=== PATIENT | female | born 1985 | race Caucasian/White ===

== ENCOUNTER → 2017-08-18 23:00 | Outpatient (CLI) | payer OTHER, SELFPAY ==
[2017-08-26 11:44] LABS: HPV Reflexed? NOT INDICATED
== END ==
PROVIDERS: Visit Provider Obstetrics & Gynecology
DX: Z12.4 Encounter for screening for malignant neoplasm of cervix (principal)
CPT/HCPCS: 88175; G0145

== ENCOUNTER → 2018-10-22 13:40 | Outpatient (CLI) | payer OTHER, SELFPAY ==
[2018-09-21 08:56] VITALS: BMI 21.4
--- NOTE | 2018-10-22 13:45 | US_ITS ---
STUDY: ULTRASOUND TRANSVAGINAL CLINICAL: Female, 33 years old. Infertility TECHNIQUE: Transvaginal COMPARISON: None. FINDINGS: Normal uterine size measuring 8.9 x 5.7 x 4.8 cm. Uterus is anteverted and is midline. There are no myometrial masses. Normal endometrial thickness measuring 10 mm. The endometrium is echogenic. There are no endometrial masses, and there is no fluid in the endometrial cavity. Normal uterine cervix. Normal right ovary, measuring 3.9 x 2.7 x 2.9 cm. Normal left ovary, measuring 3.6 x 2.2 x 2.2 cm. There is no free fluid in the pelvis. Polycystic ovary disease: No. US/Pelvic (Non ) IMPRESSION: Study within normal limits. Electronically Signed: Mynor Tang MD at 23:46 EDT , Service support ,
--- NOTE | 2018-10-22 13:45 | US_ITS ---
STUDY: ULTRASOUND TRANSVAGINAL CLINICAL: Female, 33 years old. Infertility TECHNIQUE: Transvaginal COMPARISON: None. FINDINGS: Normal uterine size measuring 8.9 x 5.7 x 4.8 cm. Uterus is anteverted and is midline. There are no myometrial masses. Normal endometrial thickness measuring 10 mm. The endometrium is echogenic. There are no endometrial masses, and there is no fluid in the endometrial cavity. Normal uterine cervix. Normal right ovary, measuring 3.9 x 2.7 x 2.9 cm. Normal left ovary, measuring 3.6 x 2.2 x 2.2 cm. There is no free fluid in the pelvis. Polycystic ovary disease: No. US/Transvaginal Non- IMPRESSION: Study within normal limits. Electronically Signed: Mynor Tang MD at 23:46 EDT , Service support ,
== END ==
PROVIDERS: Referring Provider Obstetrics & Gynecology; Visit Provider Obstetrics & Gynecology
DX: F32.81 Premenstrual dysphoric disorder (principal); M62.89 Other specified disorders of muscle; N39.46 Mixed incontinence; N97.9 Female infertility, unspecified
CPT/HCPCS: 76830; 76856; 93976

== ENCOUNTER → 2019-06-13 09:58 | Outpatient (CLI) | payer OTHER, SELFPAY ==
[2019-06-13 09:00] VITALS: BMI 24.3
[2019-06-13 10:24] LABS: Absolute Lymphocyte Count 1.24 X10^3/uL (0.83-4.51); Absolute Neutrophil Count 5.7 X10^3/uL (2.0-7.7); Basophil# 0.01 X10^3/uL; Basophil% 0.1 % (0-1); Eosinophil# 0.07 X10^3/uL; Eosinophils% 0.9 % (0-5); Hematocrit 38.8 % (37-47); Hemoglobin 13.1 g/dL (12.0-15.0); Lymphocyte # 1.24 X10^3/ul (4.0); Lymphocyte % 16.6 % (19-41); Mean Corp Hgb Conc 33.8 g/dL (32-36); Mean Corpuscular Hgb 31.6 pg (27.0-32.0); Mean Corpuscular Volume 93.7 fL (81-99); Mean Platelet Vol. 10.4 fl (6.2-12.0); Monocyte# 0.46 X10^3/uL; Monocyte% 6.1 % (0-10); NRBC Flagged by Analyzer 0 % (0-5); Neutrophil # 5.65 X10^3/uL (2.7-7.7); Neutrophil % 75.6 % (47-70); Platelet Count 157 K/mm3 (150-450); RBC Distribution Width CV 12.6 % (11.6-14.6); RBC Distribution Width SD 42.9 fl (35.1-43.9); Red Blood Count 4.14 M/mm3 (4.2-5.4); White Blood Count 7.5 K/mm3 (4.4-11.0)
[2019-06-13 12:06] LABS: HIV - WCH Non-Reactive (Nonreactive); Hepatitis B Surface Antigen Non-Reactive (Nonreactive); Hepatitis C Antibody Non-Reactive (Nonreactive); Rubella IgG 108.2 IU/mL
[2019-06-13 17:56] LABS: Amphetamine Urine VISTA NEGATIVE (<1000 ng/mL); Barbiturate Urine VISTA NEGATIVE (< 200 ng/mL); Benzodiazepine Urine VISTA NEGATIVE (< 200 ng/mL); Cocaine Urine VISTA NEGATIVE (< 300 ng/mL); Ecstacy Urine VISTA NEGATIVE (< 500 ng/mL); Methadone Urine VISTA NEGATIVE (< 300 ng/mL); PCP Urine VISTA NEGATIVE (< 25 ng/mL); THC Urine VISTA NEGATIVE (< 50 ng/mL); Vista UDS pH Range 6
[2019-06-13 19:41] LABS: Chlamydia Trachomatis by PCR Negative (Negative); Neisserai gonorrhoeae by PCR Negative (Negative); Probe Check PASS; Sample Adequacy Control PASS; Specimen Processing Control PASS
[2019-06-16 08:06] LABS: Rapid Plasmin Reagin (RPR) NONREACTIVE (NONREACTIVE)
== END ==
PROVIDERS: Referring Provider Obstetrics & Gynecology; Visit Provider Obstetrics & Gynecology
DX: O26.899 Other specified pregnancy related conditions, unspecified trimester (principal); Z67.91 Unspecified blood type, Rh negative; Z3A.00 Weeks of gestation of pregnancy not specified
CPT/HCPCS: 80307; 85025; 86592; 86703; 86762; 86803; 86850; 86900; 86901; 87086; 87088; 87340; 87491; 87591

== ENCOUNTER 2019-10-02 12:00 | Outpatient (CLI) | payer OTHER, SELFPAY ==
[2019-09-09 08:38] VITALS: BMI 21.4
[2019-10-02 12:15] VITALS: BP 111/63; PULSE 75; TEMP 36.7; O2SAT 98
[2019-10-02 12:26] VITALS: BMI 26.2
--- NOTE | 2019-10-03 12:48 | OB.TRI.PN ---
Progress Notes Date of Service: 10/02/19 Progress Note: s/p fall given rhogam fu in office reassuring FHT Laboratory Studies: Laboratory Tests 10/02/19 10/02/19 Range/Units 13:05 13:05 Blood Type A NEGATIVE Antibody Screen NEGATIVE Screen NEGATIVE (NEGATIVE) Baby's Blood Type TNP Baby's CHIP TNP - Problem List (1) Rh negative state in antepartum period Status: Acute Comment: s/p fall 10/01 given rhogam, plan to give again 12 weeks later Multi Select Codes - Urinary/Genital Urinary/Genital CPT Codes: No Charge
== END 2019-10-02 15:00 | disposition home or self-care (01) ==
LOC: WPOUT 12:08 → OBT 12:09
PROVIDERS: Visit Provider Obstetrics & Gynecology
DX: Z04.3 Encounter for examination and observation following other accident (principal); O26.899 Other specified pregnancy related conditions, unspecified trimester; Z67.91 Unspecified blood type, Rh negative; Z3A.00 Weeks of gestation of pregnancy not specified
CPT/HCPCS: 36415; 59050; 85461; 86850; 86900; 86901; 90384; 96372; 99218; G0378; J2790

== ENCOUNTER → 2019-10-21 12:58 | Outpatient (CLI) | payer OTHER, SELFPAY ==
[2019-10-07 08:12] VITALS: BMI 26.6
[2019-10-21 14:16] LABS: Absolute Lymphocyte Count 0.89 X10^3/uL (0.83-4.51); Absolute Neutrophil Count 5.7 X10^3/uL (2.0-7.7); Eosinophil# 0.05 X10^3/uL; Eosinophils% 0.7 % (0-5); Hematocrit 35.2 % (37-47); Hemoglobin 11.5 g/dL (12.0-15.0); Lymphocyte # 0.89 X10^3/ul (4.0); Lymphocyte % 12.7 % (19-41); Mean Corp Hgb Conc 32.7 g/dL (32-36); Mean Corpuscular Hgb 31.1 pg (27.0-32.0); Mean Corpuscular Volume 95.1 fL (81-99); Mean Platelet Vol. 10.9 fl (6.2-12.0); Monocyte# 0.33 X10^3/uL; Monocyte% 4.7 % (0-10); NRBC Flagged by Analyzer 0 % (0-5); Neutrophil # 5.71 X10^3/uL (2.7-7.7); Neutrophil % 81.3 % (47-70); Platelet Count 190 K/mm3 (150-450); RBC Distribution Width CV 13.2 % (11.6-14.6); RBC Distribution Width SD 45.8 fl (35.1-43.9)
[2019-10-21 14:27] LABS: Glucose Challenge Gest 1H 50g 129 mg/dL (70-140)
== END ==
PROVIDERS: Obstetrics & Gynecology; Referring Provider Obstetrics & Gynecology; Visit Provider Obstetrics & Gynecology
DX: Z34.90 Encounter for supervision of normal pregnancy, unspecified, unspecified trimester (principal); Z13.1 Encounter for screening for diabetes mellitus
CPT/HCPCS: 36415; 82950; 85025; 86850; 86870; 86900; 86901

== ENCOUNTER → 2019-12-07 16:52 | Outpatient (CLI) | payer OTHER, SELFPAY ==
[2019-12-07 16:12] VITALS: BMI 28.6
== END ==
PROVIDERS: Referring Provider Obstetrics & Gynecology; Visit Provider Obstetrics & Gynecology
DX: O26.899 Other specified pregnancy related conditions, unspecified trimester (principal); Z67.91 Unspecified blood type, Rh negative; Z3A.00 Weeks of gestation of pregnancy not specified
CPT/HCPCS: 36415; 86850; 86900; 86901

== ENCOUNTER → 2019-12-20 17:38 | Outpatient (CLI) | payer OTHER, SELFPAY ==
[2019-12-07 16:12] VITALS: BMI 28.6
== END ==
PROVIDERS: Referring Provider Obstetrics & Gynecology; Visit Provider Obstetrics & Gynecology
DX: Z34.90 Encounter for supervision of normal pregnancy, unspecified, unspecified trimester (principal)
CPT/HCPCS: 87081; 87635; C9803; U0003

== ENCOUNTER → 2019-12-27 15:45 | Outpatient (CLI) | payer OTHER, SELFPAY ==
[2019-12-27 15:45] VITALS: BMI 26.2
== END ==
PROVIDERS: Referring Provider Obstetrics & Gynecology; Visit Provider Obstetrics & Gynecology
DX: O26.899 Other specified pregnancy related conditions, unspecified trimester (principal); Z3A.00 Weeks of gestation of pregnancy not specified
CPT/HCPCS: 36415; 86850; 86900; 86901

== ENCOUNTER 2020-01-12 19:28 | Inpatient (IN) | payer OTHER, SELFPAY ==
[2019-12-27 15:45] VITALS: BMI 29.1
[2020-01-12] VITALS (11 sets, daily range): BP systolic 117–139; BP diastolic 68–79; PULSE 70–90; TEMP 36.4–37.7; O2SAT 97–99; BMI 30.2; BMI 29.9
[2020-01-12 18:37] LABS: Protein, Urine (Random) 9.4 mg/dL (<11.9); Protein:Creat Ratio 243 mg/g CRE (0-200)
[2020-01-12 18:46] LABS: Hematocrit 37.7 % (37-47); Hemoglobin 12.2 g/dL (12.0-15.0); Mean Corp Hgb Conc 32.4 g/dL (32-36); Mean Corpuscular Hgb 30.4 pg (27.0-32.0); Mean Platelet Vol. 11.6 fl (6.2-12.0); Platelet Count 165 K/mm3 (150-450); RBC Distribution Width CV 13.2 % (11.6-14.6); RBC Distribution Width SD 45.2 fl (35.1-43.9); Red Blood Count 4.01 M/mm3 (4.2-5.4)
[2020-01-12 18:49] LABS: AST(SGOT) 29 U/L (15-37); Alanine Aminotransfer ALT/SGPT 16 U/L (13-56); EST Glomerular Filtration Rate 122 mL/min (>60); Est Glom Filt Rate - Afr Amer 147 mL/min (>60); Estimated Creatinine Clearance 121.13 ml/min; Uric Acid 3.9 mg/dL (2.6-6.0)
[2020-01-12 18:56] LABS: Scan Indicated on CBC? Y/N NO
[2020-01-12] MEDS: 0.9% Saline Lock 10 ML Syringe IV (19:17)
--- NOTE | 2020-01-12 20:05 | PCM.HPOB.BLA ---
- Problem List (1) Active labor at term Status: Acute (2) Exposure to COVID-19 virus Status: Acute Comment: positive 12/19- patient tested, reviewed contact precautions. ordered testing (3) H/O section Status: Acute Comment: Breech, had successful , plan TOLAC this delivery (4) Status: Acute Qualifiers: Comment: declines genetic, carrier and NTD. anatomy scan normal (5) Rh negative state in antepartum period Status: Acute Comment: s/p fall 10/01 given rhogam, plan to give again 12 weeks later (6) Supervision of other normal Status: Acute Comment: PRR RICKY 01/17/20 Boy - Mohamud, PC:Indra Jonnathan Spouse: Warner (7) Anxiety and depression Status: Chronic Comment: on zoloft now. counseling encouraged. prozac helped in past. 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 Vicenta Gomez MD) adopted: No household members: family housing: house number of children: 2 current occupational status: employed current occupation: [employer] [place] pets and animals: Yes history of recent travel: No sexually active: Yes Smoking Status: Former smoker second hand exposure: No alcohol intake: current alcohol intake frequency: holidays/special occasions only details: not while substance use type: does not use caffeine: Yes what type of physical activity do you participate in: walking seatbelt use: always do you feel safe at home: Yes additional social history: Warner- [employer] Work[employer] Patient works at [employer] Pregancy History 2 Elective abortions Hx Para 2 Spontaneous abortions Hx # Term Pregnancies Ectopic pregnancies Hx # Pregnancies Multiple births # of living children Past Pregnancies Del. Date Name GA/Weeks Outcome Route Bth Weight Infant Gen Labor Lgth Anesthesia Del Locatn Provider FOB Unknown 2012 Indra 39 live - full term 7lbs 2oz Male spinal [place] in [place] Unknown 2016 Jonnathan 39 live - full term 6lbs 14oz Male 9 hours none Kimberli Araiza Delivery Date: Breech Naila Boland Delivery Date: No complications Naila Boland HPI 39 WK OB: Details: MARVIN CACERES is a 34 year old who presents for routine OB visit. OB Visit RICKY Calculator Estimated Delivery Date Method Current WG Current Estimate 01/17/20 LMP (Certain) 39w 2d Other Estimates 01/16/20 Ultrasound #1 39w 3d Expected Delivery Route/Plan patient counseled regarding risks/benefits of trial of labor versus repeat . ACOG and uptodate education given to patient. 95 % likelihood of success per calculator TOLAC consent form signed: 11/24 Labor Preferences- labor support person: Warner pain management options preferred: Desires natural labor cut cord/dad catch: cord : yes PP control planned: [] discussed possible routes of delivery and associated risks: [] special requests: [] Specific Issue/Plans flu vaccine: at employer tdap vaccine: yes rhogam: 10/01 LARC form signed: declined. movement and labor precautions reviewed. Problem list reviewed and updated with the most current plan of care details and appropriate orders placed. Relevant counseling for the gestational age provided. Continue routine care and follow up unless otherwise noted in visit notes/problem list details Initial Weight: 146 lb Date EGA Weight BP Urine Prot Glucose FHR FuHt Pres Dilation Effaced St Visit Note 06/01/20 12w 6d 149 lb 2 oz (+3 lb 2 oz) 118/68 Negative Negative 163 MH-Nausea resolved. NO VB, LOF. MFM US ordered 08/08/19 16w 6d 151 lb 8 oz (+5 lb 8 oz) 108/70 Negative Negative 145 17 SM- no vb lof 09/09/19 21w 3d 156 lb 2 oz (+10 lb 2 oz) 108/60 Negative Negative 140 21 SM- no vb lof good fm no regular ctx 10/07/19 25w 3d 160 lb (+14 lb) 100/80 Negative Negative 145 25 GP - no LOF, VB, DFM. Not kulwinder. Still sore after fall last weekend. 10/26/19 28w 1d 165 lb 6 oz (+19 lb 6 oz) 100/62 Negative Negative 142 29 MH-doing VB, LOF. Will get flu vaccine at work. Rhogam given 10/01:rpt in 12 weeks. Tdap, larc 11/11/19 30w 3d 164 lb 2 oz (+18 lb 2 oz) 102/56 Negative Negative 145 31 SM- no vb lof good fm no regular ctx 11/25/19 32w 3d 168 lb (+22 lb) 106/80 Negative Negative 140 33 SM- no vb lof good fm nor egular ctx signed tolac consent 12/07/19 34w 1d 172 lb 6 oz (+26 lb 6 oz) 120/80 Negative Negative 145 34 Cephalic GP - no VB, DFM, ctx. Occasional trickling of fluid. Spec exam negative. Position confirmed as vertex. Repeat antibody titers today. 12/20/19 36w 0d 122/80 140 36 Cephalic 0 SM- patient asymptomatic- loss sense of taste and smell but it otherwise doing well even though covid positive today. she denies any vb lof good fm no regular ctx 12/27/19 37w 0d 175 lb (+29 lb) 108/70 140 38 Cephalic SM- no vb lof good fm no regular ctx. 01/02/20 37w 6d 175 lb (+29 lb) 118/78 140 39 Cephalic 1 SM- fatigue and not feeling good today, no vb lof good fm no regular ctx. 01/12/20 39w 2d 181 lb 6 oz (+35 lb 6 oz) 150/102 Negative Negative 140 39 Cephalic 4 70 -1 GP - no LOF, VB, DFM. Feeling regular contractions off and on for the last 24 hours. BP elevated in office. Sent to triage for evaluation. ACOG First Trimester First Trimester: Discussed Second Trimester Second Trimester: Signs and Symptoms of Labor, Selecting a care provider, Reproductive Life Planning, Care Planning, Depression/Anxiety and Intimate Partner Violence; discussed Tobacco Cessation Diagnostics Diagnostics Diagnostics Blood Type A NEGATIVE 12/27/19 Antibody Screen NEGATIVE 12/27/19 Glucose 1 Hr 50 gm 129 mg/dL (70-140) 10/21/19 Hgb 11.5 g/dL (12.0-15.0) L 10/21/19 Hct 35.2 % (37-47) L 10/21/19 Details: HIV: Urine Culture: Sequential Screen: NIPT Screen: ROS Const Reports system reviewed and no additional complaints, except as docu, Reports fatigue, Denies headache(s) ENT Reports system reviewed and no additional complaints, except as docu; denies headache(s) Card Reports system reviewed and no additional complaints, except as docu, Denies chest pain Resp Reports system reviewed and no additional complaints, except as docu GI Reports system reviewed and no additional complaints, except as docu Reports system reviewed and no additional complaints, except as docu, Denies abnormal vaginal bleeding, Denies painful urination, Denies nipple discharge, Denies pelvic pain, Denies vaginal discharge, Denies vaginal odor, Denies vaginal itching Musc Reports system reviewed and no additional complaints, except as docu Skin/Breast Reports system reviewed and no additional complaints, except as docu, Denies nipple discharge Neuro Yes system reviewed and no additional complaints, except as docu, No headache(s) Psych Reports system reviewed and no additional complaints, except as docu Endo Reports system reviewed and no additional complaints, except as docu, Reports fatigue Exam Const General: cooperative, healthy appearing, comfortable, no acute distress, well developed, well groomed Nutritional Appearance: average body habitus, well nourished Orientation: alert, awake, oriented x3 HENMT Head: normal to inspection, normocephalic, atraumatic Eyes Pupils: PERRL, accommodation normal Resp Effort & Inspection: normal respiratory effort, able to speak in complete sentences, symmetric chest movement Cardio Rate: regular rate GI Palpation: soft, no guarding, no masses, nontender Skin General: no rashes or lesions noted, elasticity normal, turgor normal Neuro General: alert, awake, oriented x3 Cranial Nerves: CN's II-XI intact bilaterally, sense of smell intact, PERRL, accommodation normal, EOM intact bilaterally Speech: speech normal Gait: normal gait Psych Appearance: grossly normal, well kempt Mental Status: mental status grossly normal Mood: congruent mood Affect: normal affect Speech and Movement: speech and movement normal Attitude: cooperative Thought Process: normal Thought Content: normal Judgment: judgment good Results POC Urinalysis 2 Dip (Clinic) Office Urine Glucose Negative Last Edit by Jud Bennett on 01/12/20 16:46 Office Urine Protein Negative Last Edit by Jud Bennett on 01/12/20 16:46 Assessment & Plan Problems 1. 37 weeks gestation of Z3A.37 electronic ordered 12/28/2019 ([facility] for 01/12/20 at 1630) 2. H/O section Z98.891 Breech, had successful , plan TOLAC this delivery 3. Exposure to COVID-19 virus Z20.828 positive 12/19- patient tested, reviewed contact precautions. ordered testing 4. Rh negative state in antepartum period O26.899; Z67.91 s/p fall 10/01 given rhogam, plan to give again 12 weeks later 5. Supervision of other normal Z34.80 PRR RICKY 01/17/20 Boy - Mohamud, PC:Jonnathan Burrell Spouse: Warner 6. 39 weeks gestation of Z3A.39 declines genetic, carrier and NTD. anatomy scan normal 7. Anxiety and depression F41.9; F32.9 on zoloft now. counseling encouraged. prozac helped in past. Patient presents IAL, plan expectant management for , pitocin/AROM PRN if needed. Pain management: desires natural labor. GBS negative. Management of any complications: none I have reviewed the [facility] and made any clinically relevant updates. UPDATE- I have seen the patient and performed any clinically relevant updates to the history and physical exam. Vicenta Gomez MD
[2020-01-13] VITALS (24 sets, daily range): BP systolic 101–128; BP diastolic 55–74; PULSE 75–107; RESP 12–14; TEMP 36.4–37.7; O2SAT 94–99
[2020-01-13] MEDS: 0.9% Saline Lock 10 ML Syringe IV (03:39)
[2020-01-13] MEDS: Oxytocin 30 units/NS 500 ml 30 UNITS/500 ML IV.SOLN 334 UNITS IV (08:08)
--- NOTE | 2020-01-13 08:23 | OP.PCM_ITS ---
Problem List (1) Vaginal after Status: Acute (2) Active labor at term Status: Acute (3) 37 weeks gestation of Status: Acute Comment: electronic ordered 12/28/2019 (formerly [facility] for 01/12/20 at 1630) (4) Exposure to COVID-19 virus Status: Acute Comment: positive 12/19- patient tested, reviewed contact precautions. ordered testing (5) H/O section Status: Acute Comment: Breech, had successful , plan TOLAC this delivery (6) Rh negative state in antepartum period Status: Acute Comment: s/p fall 10/01 given rhogam, plan to give again 12 weeks later (7) Supervision of other normal Status: Acute Comment: PRR RICKY 01/17/20 Boy - Mohamud, PC:Jonnathan Burrell Spouse: Warner (8) Status: Acute Qualifiers: Comment: declines genetic, carrier and NTD. anatomy scan normal (9) Anxiety and depression Status: Chronic Comment: on zoloft now. counseling encouraged. prozac helped in past. Vaginal Delivery Maternal Presentation: Active Labor ial TOLAC Amniotic Membrane Rupture Type: Artificial Amniotic Fluid Description: Clear Final RICKY: 01/17/20 Gestational age: 39 Weeks and 3 Days Date of Procedure: 01/13/20 Pre-Operative Diagnosis: ial Post-Operative Diagnosis: same Surgery/ Procedure Performed: Spontaneous Vaginal Delivery - vaginal after Type of Anesthesia: Local with 1% lidocaine Description of Procedure: Patient began pushing and delivered the head in the RICK presentation. The head was delivered atraumatically. The anterior and posterior shoulders delivered without complication followed by the rest of the and the infant was placed on the maternal abdomen. Delayed cord clamping was employed for approximately 60 seconds. Cord was clamped and cut and gentle traction was applied to the cord and the placenta delivered spontaneously immediately following it was noted to be intact with three-vessel cord. The perineum and vagina were inspected and noted to have a second degree perineal laceration injected with lidocaine and repaired in the usual fashion with 3-0 vicryl rapide. EBL was 100 cc. Patient and tolerated delivery well. Presentation: RICK Placental Delivery Description: Spontaneous Placenta Disposition: [facility] Cord Vessel Description: 3 Vessels Cord Entanglement: None Infant A gender: Male Episiotomy Description: None Laceration: Perineal Extension/lac, 2nd degree Medications given after delivery: IV Pitocin Complications: None Multi Select Codes - Urinary/Genital Urinary/Genital CPT Codes: 08196 delivery [facility]
--- NOTE | 2020-01-13 08:29 | DCINST_ITS ---
Discharge Diet: No Restrictions Discharge Activity: Return to Normal Activity, May not drive while taking narcotic pain medications., May Shower May resume sexual activity in: 4-6 weeks Call your doctor if your incision/area has: Continuous Slow Oozing, Sudden Increased Bleeding, Increased Pain/ Swelling, Increased Redness, Foul Smelling Discharge Additional Instructions: If you experience any of the following, contact your healthcare provider. * Bleeding that soaks a pad every hour for 2 hours * Fever 100.4 or higher * Unrelieved incision or abdominal pain * Swelling, redness, discharge or bleeding from your incision or episiotomy site * Your incision begins to separate * Problems urinating (including inability to urinate or burning while urinating). * Visual changes * Severe headache * Flu-like symptoms * Pain or redness in one of both of your breasts * Pain, warmth, tenderness or swelling in your legs, especially the calf area * Frequent nausea and vomiting * Symptoms of depression or anxiety If you experience any of the following, call 911 or go to the nearest Emergency Room. * Chest pain * Problems breathing * Seizure activity * Partial or complete paralysis of a body part, slurred speech, weakness or drooping of the face, or a sudden inability to walk or hold your balance Allergies/Adverse Reactions: Allergies No Known Allergies Allergy (Verified 01/12/20 18:22) Medications to take at Discharge prenat.vits,jamshid,[id number]-xtkn-ltljm 1 tab PO QDAY #30 tab 09/09/19 sertraline 50 mg tablet 50 mg PO QDAY #30 tab 09/09/19 Naproxen [Naprosyn] 250 - 500 mg PO Q8H PRN PRN #30 tab 01/13/20 The following prescriptions were given: Naproxen [Naprosyn] 250 - 500 mg PO Q8H PRN PRN #30 tab PRN Reason: MILD PAIN Transmission Status: Pending to [id number] Please Follow Up With: Marla Colbert MD - [phone] When: Call to make an appointment with your doctor in 6 weeks. If you had elevated Blood pressure or 4th degree laceration you will need to be seen in 2 weeks. Primary Care Physician: Care Physician,No Primary [Primary Care Provider] - Test Results: Test results from this visit will be discussed in further detail at your follow- up appointment, if applicable.
--- NOTE | 2020-01-13 08:29 | PCM.DCVAG ---
Discharge Diet: No Restrictions Discharge Activity: Return to Normal Activity, May not drive while taking narcotic pain medications., May Shower May resume sexual activity in: 4-6 weeks Call your doctor if your incision/area has: Continuous Slow Oozing, Sudden Increased Bleeding, Increased Pain/ Swelling, Increased Redness, Foul Smelling Discharge Additional Instructions: If you experience any of the following, contact your healthcare provider. Bleeding that soaks a pad every hour for 2 hours Fever 100.4 or higher Unrelieved incision or abdominal pain Swelling, redness, discharge or bleeding from your incision or episiotomy site Your incision begins to separate Problems urinating (including inability to urinate or burning while urinating). Visual changes Severe headache Flu-like symptoms Pain or redness in one of both of your breasts Pain, warmth, tenderness or swelling in your legs, especially the calf area Frequent nausea and vomiting Symptoms of depression or anxiety If you experience any of the following, call 911 or go to the nearest Emergency Room. Chest pain Problems breathing Seizure activity Partial or complete paralysis of a body part, slurred speech, weakness or drooping of the face, or a sudden inability to walk or hold your balance Allergies/Adverse Reactions: Allergies No Known Allergies Allergy (Verified 01/12/20 18:22) Medications to take at Discharge prenat.vits,jamshid,bdx-tlgn-tgjwb 1 tab PO QDAY #30 tab 09/09/19 sertraline 50 mg tablet 50 mg PO QDAY #30 tab 09/09/19 Naproxen [Naprosyn] 250 - 500 mg PO Q8H PRN PRN #30 tab 01/13/20 The following prescriptions were given: Naproxen [Naprosyn] 250 - 500 mg PO Q8H PRN PRN #30 tab PRN Reason: MILD PAIN [id number] Please Follow Up With: Marla Colbert MD - [phone] When: Call to make an appointment with your doctor in 6 weeks. If you had elevated Blood pressure or 4th degree laceration you will need to be seen in 2 weeks. Primary Care Physician: Care Physician,No Primary [Primary Care Provider] - Test Results: Test results from this visit will be discussed in further detail at your follow-up appointment, if applicable.
[2020-01-13] MEDS: Naproxen 250 MG Tablet 500 MG PO ×2 (09:33→19:52)
--- NOTE | 2020-01-13 12:20 | NURSING ---
Received report from Kasia Sheikh RN. I will assume care at this time.
[2020-01-14] VITALS (9 sets, daily range): BP systolic 103–107; BP diastolic 62–69; PULSE 78–89; RESP 14–16; TEMP 36.3–37; O2SAT 96–99
[2020-01-14] MEDS: Naproxen 250 MG Tablet 500 MG PO (08:13)
--- NOTE | 2020-01-14 08:54 | PCM.PN.OB ---
Patient Problems: Active and Suspected Problems (Last Reviewed 01/12/20 @ 16:44 by Jud Bennett) Active labor at term (Acute) Vaginal after (Acute) 37 weeks gestation of (Acute) electronic ordered 12/28/2019 ([facility] for 01/12/20 at 1630) Exposure to COVID-19 virus (Acute) positive 12/19- patient tested, reviewed contact precautions. ordered testing H/O section (Acute) Breech, had successful , plan TOLAC this delivery Rh negative state in antepartum period (Acute) s/p fall 10/01 given rhogam, plan to give again 12 weeks later Supervision of other normal (Acute) PRR IRCKY 01/17/20 Boy - Mohamud, PC:IndraViral chavezy Spouse: Warner (Acute) declines genetic, carrier and NTD. anatomy scan normal Subjective: Patient doing well without complaints. Tolerating PO. Ambulating and voiding without difficulty. feeding well. Denies chest pain, shortness of breath, calf pain/swelling, fevers, chills, lightheadedness. - Physical Exam Vitals/I&O's: Vital Signs Temp Pulse Resp BP Pulse Ox 97.6 F L 79 16 106/68 96 01/14/20 08:06 01/14/20 08:09 01/14/20 08:06 01/14/20 08:08 01/14/20 08:09 Oxygen Delivery Method Room Air Weight: 179 lb 14.355 oz Body Mass Index (BMI) 29.9 Intake and Output for Last 24 Hours 01/12/20 01/13/20 01/14/20 23:59 23:59 23:59 Intake Total 740.00 / 740.00 Output Total 500 / 500 Balance 240.00 / 240.00 General: Alert, Oriented x3, Cooperative Abdomen: Soft, Non Tender, - - FF below U Laboratory Results 01/13/20 09:35: Screen NEGATIVE, Baby's Blood Type O POSITIVE, Baby's CHIP NEGATIVE Current Medications Acetaminophen (Acetaminophen 500 Mg Tablet) 1,000 mg PO Q8H PRN PRN PRN Reason: Pain Score 1-3 Bisacodyl (Bisacodyl 10 Mg Suppository) 10 mg RECTAL UD PRN PRN Reason: If no BM Hydrocortisone (Hydrocortisone 2.5% Crm) 1 applic TOPICAL TID PRN PRN; Protocol PRN Reason: Discomfort Methylergonovine Maleate (Methylergonovine 0.2 Mg/Ml Ampul) 0.2 mg IM X1 PRN PRN Reason: Excess bleeding/uterine atony Naproxen (Naproxen 250 Mg Tablet) 500 mg PO Q8H PRN PRN PRN Reason: Pain Score 1-3 Last Admin: 01/14/20 08:13 Dose: 500 mg Documented by: Ondansetron HCl (Ondansetron 4 Mg/2 Ml Vial) 4 mg IV Q4H PRN PRN PRN Reason: Nausea Oxycodone HCl (Oxycodone 5 Mg Tablet) 5 - 10 mg PO Q4H PRN PRN PRN Reason: Pain Score 4-10 Senna/Docusate Sodium (Senna/Docusate Sodium 1 Tablet) 1 - 2 tablet PO DAILY PRN PRN PRN Reason: Constipation Simethicone (Simethicone 80 Mg Tablet) 80 mg PO PCHS PRN PRN Reason: Indigestion/Stomach pain Sodium Chloride (0.9% Saline Lock 10 Ml Syringe) 5 - 15 ml IV UD PRN PRN Reason: SALINE FLUSH Medical Necessity - Tobacco Use Smoking Status: Former smoker Assessment/Plan All Active Problems (Last Reviewed 01/12/20 @ 16:44 by Jud Bennett) Active labor at term (Acute) Vaginal after (Acute) 37 weeks gestation of (Acute) Exposure to COVID-19 virus (Acute) H/O section (Acute) Rh negative state in antepartum period (Acute) Supervision of other normal (Acute) (Acute) Anti-D antibodies present during (Resolved) GERD (gastroesophageal reflux disease) (Resolved) History of tobacco use (Resolved) Insomnia (Resolved) s/p PPD # 1 1. routine post delivery care 2. breast feeding- support given 3. rh negative 4. rubella immune 5. home today
== END 2020-01-14 15:00 | disposition home or self-care (01) | DRG 807 ==
LOC: MTDU 19:29 → WP 19:29
PROVIDERS: Obstetrics & Gynecology; Admitting Provider Obstetrics & Gynecology; Visit Provider Obstetrics & Gynecology
DX: O34.219 Maternal care for unspecified type scar from previous cesarean delivery (principal); O70.1 Second degree perineal laceration during delivery; Z20.828 Contact with and (suspected) exposure to other viral communicable diseases; Z67.91 Unspecified blood type, Rh negative; O99.344 Other mental disorders complicating childbirth; F32.9 Major depressive disorder, single episode, unspecified; F41.9 Anxiety disorder, unspecified; Z79.899 Other long term (current) drug therapy; Z87.891 Personal history of nicotine dependence; Z3A.39 39 weeks gestation of pregnancy; Z37.0 Single live birth
CPT/HCPCS: 59025; 59050; 82565; 82570; 84156; 84450; 84460; 84550; 85027; 85461; 86850; 86900; 86901; 87635; 90384; 99218; C9803; A4216; G0378; J2790; U0003

== ENCOUNTER → 2020-03-01 | Outpatient (CLI) | payer OTHER, SELFPAY ==
[2020-03-01 14:22] VITALS: BMI 25.6
[2020-03-07 15:57] LABS: HPV APTIMA, High Risk Negative (Negative)
== END | disposition home or self-care (01) ==
PROVIDERS: Referring Provider Obstetrics & Gynecology; Visit Provider Obstetrics & Gynecology
DX: Z12.4 Encounter for screening for malignant neoplasm of cervix (principal)
CPT/HCPCS: 87624; 88175; G0145

== ENCOUNTER → 2022-07-28 | Outpatient (CLI) | payer BC, SELFPAY ==
[2022-07-28 15:14] LABS: hCG Titer Quant., Serum 6 mIU/mL (1-3)
== END | disposition home or self-care (01) ==
PROVIDERS: Referring Provider Nurse Practitioner Women's Health; Visit Provider Nurse Practitioner Women's Health
DX: N91.2 Amenorrhea, unspecified (principal)
CPT/HCPCS: 36415; 84702; 86850; 86900; 86901

== ENCOUNTER → 2023-07-27 | Outpatient (CLI) | payer BC, SELFPAY ==
[2023-07-27 14:40] LABS: Absolute Lymphocyte Count 1.45 X10^3/uL (0.83-4.51); Absolute Neutrophil Count 7.3 X10^3/uL (2.0-7.7); Basophil# 0.02 X10^3/uL; Basophil% 0.2 % (0-1); Eosinophils% 1.1 % (0-5); Hematocrit 39.1 % (37-47); Hemoglobin 13.3 g/dL (12.0-15.0); Lymphocyte # 1.45 X10^3/ul (0.83-4.51); Lymphocyte % 15.3 % (19-41); Mean Corpuscular Hgb 30.7 pg (27.0-32.0); Mean Corpuscular Volume 90.3 fL (81-99); Monocyte# 0.54 X10^3/uL; Monocyte% 5.7 % (0-10); NRBC Flagged by Analyzer 0 % (0-5); Neutrophil # 7.29 X10^3/uL (2.7-7.7); Neutrophil % 77.2 % (47-70); Platelet Count 177 K/mm3 (150-450); RBC Distribution Width CV 12.4 % (11.6-14.6); RBC Distribution Width SD 40.7 fl (35.1-43.9); Red Blood Count 4.33 M/mm3 (4.2-5.4); White Blood Count 9.5 K/mm3 (4.4-11.0)
[2023-07-27 16:17] LABS: HIV - WCH Non-Reactive (Nonreactive); Hepatitis B Surface Antigen Non-Reactive (Nonreactive); Hepatitis C Antibody Non-Reactive (Nonreactive); Rubella IgG Reactive (Nonreactive); Syphilis Antibodies Non-reactive
[2023-07-27 23:23] LABS: Hemoglobin A1c 4.9 % (3.8-5.6)
[2023-07-29 21:07] LABS: Chlamydia By Nucleic Acid AMP Negative (Negative); Gonococcus By Nucleic Acid AMP Negative (Negative)
== END | disposition home or self-care (01) ==
PROVIDERS: Referring Provider Advanced Practice Midwife; Visit Provider Advanced Practice Midwife
DX: O09.90 Supervision of high risk pregnancy, unspecified, unspecified trimester (principal); Z3A.00 Weeks of gestation of pregnancy not specified
CPT/HCPCS: 36415; 83036; 85025; 86703; 86762; 86780; 86803; 86850; 86900; 86901; 87086; 87088; 87340; 87491; 87591

== ENCOUNTER → 2023-12-08 | Outpatient (CLI) | payer BC, SELFPAY ==
[2023-12-08 09:18] LABS: Absolute Lymphocyte Count 1.17 X10^3/uL (0.83-4.51); Absolute Neutrophil Count 6.2 X10^3/uL (2.0-7.7); Basophil# 0.02 X10^3/uL; Basophil% 0.2 % (0-1); Eosinophil# 0.07 X10^3/uL; Eosinophils% 0.9 % (0-5); Hematocrit 36.6 % (37-47); Hemoglobin 12.5 g/dL (12.0-15.0); Lymphocyte # 1.17 X10^3/ul (0.83-4.51); Lymphocyte % 14.6 % (19-41); Mean Corp Hgb Conc 34.2 g/dL (32-36); Mean Corpuscular Hgb 32.4 pg (27.0-32.0); Mean Corpuscular Volume 94.8 fL (81-99); Mean Platelet Vol. 10.5 fl (6.2-12.0); Monocyte# 0.42 X10^3/uL; Monocyte% 5.2 % (0-10); NRBC Flagged by Analyzer 0 % (0-5); Neutrophil # 6.23 X10^3/uL (2.7-7.7); Neutrophil % 77.6 % (47-70); Platelet Count 142 K/mm3 (150-450); RBC Distribution Width CV 13.2 % (11.6-14.6); RBC Distribution Width SD 45.2 fl (35.1-43.9); Red Blood Count 3.86 M/mm3 (4.2-5.4)
[2023-12-08 09:46] LABS: Glucose Challenge Gest 1H 50g 134 mg/dL (70-140)
--- OUTSIDE RECORDS SUMMARY | 2023-12-08 10:09 | XMS RPT_ITS | CCD ---
Author Organization [facility] Inform ion Partnership [facility] Care Team Providers Care Computer Aided Design Designer Name Role Phone CARLI PRIMARY CAREMD Primary Care Unavailable MARQUEZ CANTOR Referring Unavailab le MARQUEZ CANTOR Attending Unavailab le Results Test Name Value Interpretation Reference Range Facil ity Lab Miscellaneouson 10-05-19 19 Status See Ref Lab Report [facility] Comment on above: Performed By: #### 1 [id number] #### KALA Send Outs Subsection [facility] [place] [address] Estradiolon 10-02-2018 Estradiol Lvl 25.4 pg/mL [facility] Comment on above: Result Comment: Adul t Female: Follicular phase 12.5 - 166.0 Ovulation phase 85.8 - 498.0 Luteal phase 43.8 - 211.0 Postmenopausal <6.0 - 54.7 1st trimester 215.0 - >4300.0 Girls (1-10 years) 6.0 - 27.0 Josselyn ECLIA methodology Performed At: [address] [id number] Zain Toscano PhD Ph:[phone] Performed By: #### 2 [id number] #### KALA Send Outs Subsection [facility] [place] [address] FSHon 10-02-2018 FSH 7.0 mIU/mL [facility] Comment on above: Result Comment: Adul t Female: Follicular phase 3.5 - 12.5 Ovulation phase 4.7 - 21.5 Luteal phase 1.7 - 7.7 Postmenopausal 25.8 - 134.8 Performed At: [address] [id number] Zain Toscano PhD Ph:[phone] Performed By: #### 2 [id number] #### KALA Send Outs Subsection [facility] [place] [address] Progesterone Lvlon 9 Progest Lvl 0.2 ng/mL Normal [facility] Comment on above: Result Comment: Foll icular phase 0.1 - 0.9 Luteal phase 1.8 - 23.9 Ovulation phase 0.1 - 12.0 First trimester 11.0 - 44.3 Second trimester 25.4 - 83.3 Third trimester 58.7 - 214.0 Postmenopausal 0.0 - 0.1 Performed At: [facility] [id number] Zain Toscano PhD Ph:[phone] Performed By: #### 1 [id number] #### KALA Send Outs Subsection [address] [place] [address] Prolactin Lvlon 10-02-2018 Prolactin Lvl 14.2 ng/mL Normal 4.8-23.3 [facility] Comment on above: Result Comment: Perf ormed At: [facility] [id number] Zain Toscano PhD Ph:[phone] Performed By: #### 1 [id number] #### KALA Send Outs Subsection [facility] [place] [address] Lab Miscellaneouson 10-02-19 19 Test Name free testostero Normal [facility] Comment on above: Performed By: #### 1 [id number] #### KALA Send Outs Subsection [address] [place] [address] TSHon 10-01-2018 TSH Qn 0.90 mcIU/mL Normal 0.30-5.60 [facility] Comment on above: Performed By: #### 2 [id number] #### KALA [employer] [address] [place], [place] [address] Encounters Encounter Date Encounter Type Care Provider Facility Start: 10-15-2023 End: 10-15-2023 ambulatory MD [facility] Rashmi [facility] Payers Date Payer Category Payer Unknown [id number] Unknown [id number] Summary Purpose Family History No Family History Records FoundNo Family History Records Found Advance Directives No Advanced Directives Records FoundNo Advanced Directives Records Found Additional Source Comments INFORMATION SOURCE (unrecogn ized section and content) DATE CREATED AUTHOR 10/08/2018 [facility] DATE CREATED AUTHOR AUTHOR'Joselyn HALEY 10/17/2023 [facility] FOR RECORDS PERTAINING TO PATIENTS WHO ARE OR HAVE BEEN ENROLLED IN A CHEMICAL DEPENDENCY/SUBSTANCEABUSE PROGRAM, SOME INFORMATION MAY BE OMITTED. This clinical summary was aggregated from multiple sources. Caution should be exercised in using it in the provision of clinical care. This summary normalizes information from multiple sources, and as a consequence, information in this document may materially change the coding, format and clinical context of patient data. In addition, data may be omitted in some cases. CLINICAL DECISIONS SHOULD BE BASED ON THE PRIMARY CLINICAL RECORDS. [employer] provides no warranty or guarantee of the accuracy or completeness of information in this document.
[2023-12-08 10:20] LABS: HIV - WCH Non-Reactive (Nonreactive); Syphilis Antibodies Non-reactive
== END | disposition home or self-care (01) ==
LOC: WOBLAB 09:02
PROVIDERS: Referring Provider Obstetrics & Gynecology; Visit Provider Obstetrics & Gynecology
DX: O09.92 Supervision of high risk pregnancy, unspecified, second trimester (principal); Z3A.00 Weeks of gestation of pregnancy not specified; Z13.1 Encounter for screening for diabetes mellitus
CPT/HCPCS: 36415; 82950; 85025; 86703; 86780; 86850; 86900; 86901

== ENCOUNTER → 2024-01-06 | Outpatient (CLI) | payer BC, SELFPAY ==
[2024-01-06 11:10] LABS: Hemoglobin 12.2 g/dL (12.0-15.0); Mean Corp Hgb Conc 33.9 g/dL (32-36); Mean Corpuscular Hgb 31.9 pg (27.0-32.0); Mean Corpuscular Volume 94.2 fL (81-99); Mean Platelet Vol. 10.8 fl (6.2-12.0); Platelet Count 160 K/mm3 (150-450); RBC Distribution Width CV 13.2 % (11.6-14.6); RBC Distribution Width SD 45.5 fl (35.1-43.9); Red Blood Count 3.82 M/mm3 (4.2-5.4); White Blood Count 10.8 K/mm3 (4.4-11.0)
== END | disposition home or self-care (01) ==
LOC: BWCLAB 09:19
PROVIDERS: Referring Provider Obstetrics & Gynecology; Visit Provider Obstetrics & Gynecology
DX: O99.119 Other diseases of the blood and blood-forming organs and certain disorders involving the immune mechanism complicating pregnancy, unspecified trimester (principal); D69.6 Thrombocytopenia, unspecified
CPT/HCPCS: 36415; 85027

== ENCOUNTER → 2024-02-02 | Outpatient (CLI) | payer BC, SELFPAY ==
--- NOTE | 2024-02-02 12:29 | US_ITS ---
HISTORY: AMA. TECHNIQUE: Transabdominal pelvic ultrasound was performed. 41 images. COMPARISON: None. FINDINGS: INTRAUTERINE GESTATION(s): Single. PRESENTATION: Cephalic. HEART MOTION: 145 bpm. PLACENTA: Anterior, grade 2. No placenta previa. CERVIX: Not well visualized. AMNIOTIC FLUID INDEX (LYN): 7.9 cm. Largest fluid pocket 6.1 cm. biometry- BIPARIETAL DIAMETER: 9.1 cm, corresponding to 36 weeks 5 days. HEAD CIRCUMFERENCE: 32.8 cm, corresponding to 37 weeks 1 day. ABDOMINAL CIRCUMFERENCE: 32.4 cm, corresponding to 36 weeks 2 days. FEMUR LENGTH: 7 cm, corresponding to 35 weeks 6 days. ESTIMATED GESTATIONAL AGE: 36 weeks 6 days. ESTIMATED DUE DATE (RICKY): 02/24/2024. ESTIMATED WEIGHT: 2935 g corresponding to 60th percentile. US/OB Limited With Biometrics IMPRESSION: Single living intrauterine with an estimated gestational age of 36 weeks 6 days. Electronically Signed: Piper Smith MD at 12:48 EST ,
== END | disposition home or self-care (01) ==
PROVIDERS: Referring Provider Advanced Practice Midwife; Visit Provider Advanced Practice Midwife
DX: O09.529 Supervision of elderly multigravida, unspecified trimester (principal); Z3A.00 Weeks of gestation of pregnancy not specified
CPT/HCPCS: 76816

== ENCOUNTER → 2024-02-04 | Outpatient (CLI) | payer BC, SELFPAY | END | disposition home or self-care (01) | LOC: LABSPEC 11:20 | PROVIDERS: Referring Provider Advanced Practice Midwife; Visit Provider Advanced Practice Midwife | DX: O09.92 Supervision of high risk pregnancy, unspecified, second trimester (principal); Z3A.00 Weeks of gestation of pregnancy not specified | CPT/HCPCS: 87081 ==

== ENCOUNTER 2024-02-29 13:48 | Outpatient (CLI) | payer BC, SELFPAY ==
--- NOTE | 2024-02-29 14:02 | US_ITS ---
STUDY: OBSTETRICAL ULTRASOUND - BIOPHYSICAL PROFILE REASON FOR EXAM: Female, 38 years old r/o tachycardia LMP: May 25, 2023 PRIOR ULTRASOUND: Comparison is made with prior study dated February 02, 2024. TECHNIQUE: Transabdominal TECHNICAL QUALITY: Adequate. FINDINGS: There is a single intrauterine fetus. The fetus is in a cephalic presentation. There is demonstrated cardiac activity with a heart rate of 160 bpm. There is a normal amniotic fluid volume. The largest amniotic fluid pocket measures 2.7 cm x 3.8 cm. The amniotic fluid index (LYN) is 9.8 cm. The placenta is anterior in location and is not low lying. There are Grade 3 placental changes. Age by LMP: 40 weeks, 0 days. RICKY by LMP: February 29, 2024. BIOPHYSICAL PROFILE: Breathing Movements (FBM): 2 Gross Body Movements (GBM): 2 Tone (FT): 2 Amniotic Fluid Volume (AFV): 2 TOTAL SCORE: 8 / 8 US/Biophysical Prof W/O Non Stres IMPRESSION: Normal biophysical profile of 8/8. Electronically Signed: Zoran Allison MD at 15:17 EST ,
[2024-02-29 14:24] VITALS: BP 111/68; PULSE 81; TEMP 37.5; O2SAT 99
[2024-02-29 15:05] VITALS: BMI 27.6
[2024-02-29] MEDS: Lactated Ringers 1,000 ML 999 ML IV (15:13)
--- NOTE | 2024-02-29 16:28 | OB.TRI.PN ---
Progress Notes Date of Service: 02/29/24 Progress Note: Patient presents for triage evaluation secondary to non reassuring NST in office at 40 weeks FHT: 120 Moderate variability reactive no decelerations category I tracing [place]: irregular Contractions Assessment and plan: BPP 8/8, Reactive NST, reassuring maternal and status patient discharged to home to follow-up in office. IOL set up for 41 weeks. See problem list details for additional plan information. Laboratory Studies: Laboratory Tests 02/29/24 Range/Units 14:30 WBC Cancelled Corrected WBC Cancelled RBC Cancelled Hgb Cancelled Hct Cancelled MCV Cancelled MCH Cancelled MCHC Cancelled RDW Std Deviation Cancelled RDW Coeff of Aman Cancelled Plt Count Cancelled MPV Cancelled Diff Path Review Cancelled Charges/Coding Multi Select Codes Urinary/Genital Urinary/Genital CPT Codes: 16808-27 non-stress test Interp Assessment & Plan (1) LYN (amniotic fluid index) borderline low: COMMENT: 7.8 on 36 week growth US. (2) Thrombocytopenia affecting : COMMENT: rpt plts q 4 weeks (next due end of December) (3) AMA (advanced maternal age) multigravida 35+: COMMENT: declined genetic screening, recommend 36 week growth scan, delivery by 39 weeks (4) Hx successful (vaginal after ), currently : COMMENT: x2, desires another . primary c/s breech (5) Rh negative state in antepartum period: COMMENT: Rhogam @ 28 weeks & PRN bleeding (6) Supervision of high-risk : QUALIFIERS: Trimester: second trimester Qualified Code(s): O09.92 - Supervision of high risk , unspecified, second trimester COMMENT: PRR,, RICKY 02/29/24, surprise PC Jonnathan Burrell, Mohamud Warner (7) : QUALIFIERS: Weeks of gestation: 40 weeks Qualified Code(s): Z3A.40 - 40 weeks gestation of COMMENT: GBS neg, nl anatomy, declined genetic & carrier testing (8) Non-reactive NST (non-stress test): COMMENT: BPP 8/8, reassuring on WP. ok to d/c home
== END 2024-02-29 16:38 | disposition home or self-care (01) ==
LOC: WPOUT 13:57 → WP 13:58
PROVIDERS: Referring Provider Advanced Practice Midwife; Visit Provider Advanced Practice Midwife
DX: O41.93X0 Disorder of amniotic fluid and membranes, unspecified, third trimester, not applicable or unspecified (principal); O99.113 Other diseases of the blood and blood-forming organs and certain disorders involving the immune mechanism complicating pregnancy, third trimester; D69.6 Thrombocytopenia, unspecified; O09.523 Supervision of elderly multigravida, third trimester; O26.893 Other specified pregnancy related conditions, third trimester; Z3A.40 40 weeks gestation of pregnancy
CPT/HCPCS: 96360; 76819

== ENCOUNTER → 2024-03-03 | Outpatient (CLI) | payer BC, SELFPAY ==
--- NOTE | 2024-03-03 15:39 | US_ITS ---
HISTORY: growth- AMA. TECHNIQUE: Transabdominal pelvic ultrasound was performed. 53 images. COMPARISON: 02/29/2024. FINDINGS: INTRAUTERINE GESTATION(s): Single. PRESENTATION: Cephalic. HEART MOTION: 136 bpm. PLACENTA: Anterior grade 3. No placenta previa. CERVIX: Not well visualized due to age and positioning. AMNIOTIC FLUID INDEX (LYN): 9.1 cm. Maximum vertical pocket 4.4 cm. biometry- BIPARIETAL DIAMETER: 9.7 cm, corresponding to 39 weeks 6 days. HEAD CIRCUMFERENCE: 34.2 cm, corresponding to 39 weeks 3 days. ABDOMINAL CIRCUMFERENCE: 37 cm, corresponding to 41 weeks 0 days. FEMUR LENGTH: 7.9 cm, corresponding to 40 weeks 2 days. ESTIMATED GESTATIONAL AGE: 39 weeks 5 days. ESTIMATED DUE DATE (RICKY): 03/05/2024. ESTIMATED WEIGHT: 4178 g corresponding to 9 lbs. 3 oz. US/OB Limited With Biometrics IMPRESSION: Single living intrauterine with an estimated gestational age of 39 weeks 5 days. Electronically Signed: Piper Smith MD at 13:55 EST ,
== END | disposition home or self-care (01) ==
LOC: US 15:38
PROVIDERS: Referring Provider Obstetrics & Gynecology; Visit Provider Obstetrics & Gynecology
DX: O28.8 Other abnormal findings on antenatal screening of mother (principal); Z3A.00 Weeks of gestation of pregnancy not specified
CPT/HCPCS: 76816

== ENCOUNTER 2024-03-04 17:58 | Inpatient (IN) | payer BC, SELFPAY ==
[2024-03-04] VITALS (18 sets, daily range): BP systolic 118–134; BP diastolic 59–78; PULSE 75–105; RESP 16; TEMP 37.7–38.1; O2SAT 95–99; BMI 27.8
--- NOTE | 2024-03-04 17:58 | HP.PCM.OB_ITS ---
HPI - General General Date of Admission: 03/04/24 Date of Service: 03/04/24 Chief Complaint: contractions HPI Narrative MARVIN CACERES, is a 38 F who presents at 40.4 with contractions since 129 with increasing intensity and frequency. no vaginal bleeding or leaking of fluid hx significant for c/s with first, two successful , desires today. gbs negative Maternal Data Information RICKY Calculator Estimated Delivery Date Method Current WG Current Estimate 02/29/24 LMP (Certain) 40w 4d PFSH PFSH Medical History Former smoker, stopped smoking in distant past Miscarriage, threatened, early Urinary incontinence Anxiety and depression Home Medications ?Medication ?Instructions ?Recorded ?Last Taken ?Type PNV 153-FA 400 mcg-om3 35 mg-dha tab PO 07/24/23 Unknown History 25 mg-epa 5 mg-fish oil chew tablet acetaminophen 325 mg tablet 650 mg PO Q4-6H PRN 10/21/23 Unknown History Allergy/AdvReac Type Severity Reaction Status Date / Time No Known Allergies Allergy Verified 02/29/24 13:04 Family History Father Hypertension Diabetes Mother COPD (chronic obstructive pulmonary disease) Rheumatoid arthritis Surgical History delivery delivered Social History adopted: No household members: family housing: house number of children: 3 current occupational status: employed current occupation: [employer] pets and animals: Yes (Avoid litterbox) pets and animals: cat(s) and dog(s) history of recent travel: Yes ([place]) out of state: Yes out of country: No sexually active: Yes Smoking Status: Former smoker second hand exposure: No alcohol intake: current alcohol intake frequency: holidays/special occasions only details: not while substance use type: does not use well-balanced diet: daily or most days caffeine: No eating out: rarely or never during the past year weight has: remained stable what type of physical activity do you participate in: other details: crossfit frequency: 3-4 times per week duration: 45-60 minutes/day haritha/yazdanism: Anabaptism seatbelt use: always do you feel safe at home: Yes additional social history: [employer] Patient works at [employer] History 5 Elective abortions Hx Para 3 Spontaneous abortions 1 Hx # Term Pregnancies Ectopic pregnancies Hx # Pregnancies Multiple births # of living children 3 Past Pregnancies Del. Date Name GA/Weeks Outcome Route Bth Weight Infant Gen Labor Lgth Anesthesia Del Locatn Provider FOB Unknown 2012 Indra 39 live - full term 7lbs 2oz Male spinal [place] Phill in [place] Unknown 2016 Jonnathan 39 live - full term 6lbs 14oz Male [address] Araiza Unknown 07/2022 chemical 5 spontaneous 01/13/20 Mohamud 39 live - full term Male local [facility] [place] Delivery Date: Last Updated by: Naila Boland Breech Delivery Date: Last Updated by: Naila Boland No complications Delivery Date: 01/13/20 Last Updated by: Naila Boland 2 degree laceration Visit Details Expected Delivery Route/Plan Labor Preferences- CB/BF classes: [] labor support person: [] labor intervention preferences: [] pain management options preferred: [] cut cord/dad catch: [] : [] PP control planned: [] discussed possible routes of delivery and associated risks: [] special requests: [] Plans Covid status: [] Flu vaccine: [] Tdap vaccine: [] Rhogam: [] LARC form signed: [] Problem list reviewed and updated with the most current plan of care details and appropriate orders placed. Relevant counseling for the gestational age provided. Continue routine care and follow up unless otherwise noted in visit notes/problem list details OB Flowsheet Initial Weight: Not Recorded Date -?-?-?-?-?-?-?-?-?-?-?-?- EGA Weight BP Urine Prot -?-?-?-?-?-?-?-?-?-?-?-?- Glucose FHR FuHt Pres Dilation -?-?-?-?-?-?-?-?-?-?-?-?- Effaced St Visit Note 07/27/23 -?-?-?--?-?-?-?-?-?-?-?-?- 9w 0d 136 lb 114/71 -?-?-?-?-?-?-?-?-?-?-?-?- 174 -?-?-?-?-?-?-?-?-?-?-?-?- KW- CRL cons wit h dates. declines NIPT. desires 08/27/23 -?-?-?-?-?-?-?-?-?-?-?-?- 13w 3d 141 lb 120/70 Negative -?-?-?-?-?-?-?-?-?-?-?-?- Negative 154 -?-?-?-?-?-?-?-?-?-?-?-?- JV- CRL measurin g 13 weeks + movement. patient reassured. phenergan for inominia and anxiety JV- CRL measuring 13 weeks + movement. patient reassured. phenergan for insominia and anxiety 09/22/23 -?-?-?-?-?-?-?-?-?-?-?-?- 17w 1d 144 lb 8 oz 138/76 Nega tive -?-?-?-?-?-?-?-?-?-?-?-?- Negative 141 -?-?-?-?-?-?-?-?-?-?-?-?- MH-No VB. Feels well. Some increase in lower leg varicosities/management discussed 10/21/23 -?-?-?-?-?-?-?-?-?-?-?-?- 21w 2d 148 lb 108/71 Negative -?-?-?-?-?-?-?-?-?-?-?-?- Negative 140 -?-?-?-?-?-?-?-?-?-?-?-?- SM- no vb crampi ng lof SM- no vb cramping lof decli compa afp`n nl anatomy co encinas- reveiwed supportive care 11/18/23 -?-?-?-?-?-?-?-?-?-?-?-?- 25w 2d 155 lb 4 oz 109/70 Nega tive -?-?-?-?-?-?-?-?-?-?-?-?- Negative 139 26 -?-?-?-?-?-?-?-?-?-?-?-?- JV- no lof, vagi nal bleeding, difficult to feel lots of movement due to fundal placenta. feels movements lower and on sides. declines flu vaccine. encouraged tdap and rsv at some point. 12/08/23 -?-?-?-?-?-?-?-?-?-?-?-?- 28w 1d 158 lb 2 oz 127/76 Nega tive -?-?-?-?-?-?-?-?-?-?-?-?- Negative 140 28 -?-?-?-?-?-?-?-?-?-?-?-?- SM- no vb lof go od fm no regular ctx SM- no vb lof good fm no reg ular ctx having pubic symphysis pain 12/25/23 -?-?-?-?-?-?-?-?-?-?-?-?- 30w 4d 156 lb 6 oz 106/66 Nega tive -?-?-?-?-?-?-?-?-?-?-?-?- Negative 135 31 -?-?-?-?-?-?-?-?-?-?-?-?- LC- no vb/ctx/lo f. good fm. larc signed 01/06/24 -?-?-?-?-?-?-?-?-?-?-?-?- 32w 2d 162 lb 115/75 Negative -?-?-?-?-?-?-?-?-?-?-?-?- Negative 156 32 -?-?-?-?-?-?-?-?-?-?-?-?- JV- no lof, vagi nal bleeding, or cramping. has a sore spot on the left of umbilicus. JV- no lof, vaginal bleeding , or cramping. has a sore spot on the left of umbilicus. needs rpt plts today. 01/22/24 -?-?-?-?-?-?-?-?-?-?-?-?- 34w 4d 162 lb 105/69 Negative -?-?-?-?-?-?-?-?-?-?-?-?- Negative 150 35 -?-?-?-?-?-?-?-?-?-?-?-?- KW- no vb/lof/ct x. good fm. 02/04/24 -?-?-?-?-?-?-?-?-?-?-?-?- 36w 3d 162 lb 109/71 Negative -?-?-?-?-?-?-?-?-?-?-?-?- Negative 135 38 Cephalic 2 -?-?-?-?-?-?-?-?-?-?-?-?- 65 -1 KW- no vb/ lof/ctx. good fm. LYN on tu 7.9. SM rescanned today KW- no vb/lof/ctx. good fm. LYN on tu 7.9. SM rescanned today-9+ 02/08/24 -?-?-?-?-?-?-?-?-?-?-?-?- 37w 0d 165 lb 8 oz 106/64 Nega tive -?-?-?-?-?-?-?-?-?-?-?-?- Negative 145 39 Cephalic -?-?-?-?-?-?-?-?-?-?-?-?- JV- no lof, vagi nal bleeding, or dec fm. will decide next week if going to check fluid level. 02/16/24 -?-?-?-?-?-?-?-?-?-?-?-?- 38w 1d 164 lb 8 oz 128/77 Nega tive -?-?-?-?-?-?-?-?-?-?-?-?- Negative 140 39 Cephalic -?-?-?-?-?-?-?-?-?-?-?-?- JV- patient decl jaxson pelvic exam. Fundal height is appropriate. prefers no IOL. No indication at this time. 02/23/24 -?-?-?-?-?-?-?-?-?-?-?-?- 39w 1d 167 lb 116/76 Negative -?-?-?-?-?-?-?-?-?-?-?-?- Negative 130 -?-?-?-?--?-?-?-?-?-?-?-?- SM- no vb lof go od fm no regular ctx reviewed with patient option for delivery at 39-40 due to AMA and patient requesting expectant mangment. I recommend weekly nsts and growth US q 4 weeks if exp management. called away early due to delivery- tracing reviewed by PERFORMANCE IMPROVEMENT SPECIALIST. 02/29/24 -?-?-?-?-?-?-?-?-?-?-?-?- 40w 0d 167 lb 6 oz 127/76 Nega tive -?-?-?-?-?-?-?-?-?-?-?-?- Negative 170 3 -?-?-?-?-?-?-?-?-?-?-?-?- 70 -1 KW- no vb/ lof. some regular ctx. questionable late on NST. to for evaluation NST FHR Rate Baby A Baseline: 140 Variability:: Moderate Accelerations:: 15 x 15 Decelerations:: None NST Reactive:: Yes FHR Category:: Category I Uterine Activity:: q2-3 minutes ROS Cardiovascular Cardiovascular: Denies abdominal pain, chest pain, diaphoresis or dyspnea Respiratory/Chest Respiratory/Chest: Denies change in mental status, chest congestion, chest tightness, cough, shortness of breath at rest, shortness of breath with exertio n, breast mass, breast pain, breast skin changes, breast swelling, change in breast shape or nipple discharge Genitourinary Genitourinary: Reports change in urinary stream Musculoskeletal Musculoskeletal: Reports none Integumentary Integumentary: Reports none Neurologic Neurologic: Reports none Psychiatric Psychiatric: Reports none Endocrine Endocrinology: Reports none Hematologic/Lymphatic Hematologic/Lymphatic: Reports none Allergic/Immunologic Allergic/Immunologic: Reports none Vital Signs Vital Signs Vital Signs: 03/04/24 17:36 03/04/24 17:36 03/04/24 17:47 Pulse Rate 88 105 H Blood Pressure 134/74 H BP Systolic 134 BP Diastolic 74 Pulse Ox 03/04/24 17:47 03/04/24 17:52 03/04/24 17:52 Pulse Rate 85 Blood Pressure BP Systolic BP Diastolic Pulse Ox 99 99 Physical Exam Const alert, oriented x3 and no apparent distress General Appearance: cooperative, comfortable and well kempt Orientation / Consciousness: awake and oriented to person Exam Limitations: no limitations HEENT normocephalic Neck full ROM Chest inspection of chest normal Resp normal respiratory effort, normal air movement and no retractions Effort and Inspection: able to speak in complete sentences and symmetric chest movement Cardio regular rate Peripheral Pulses: pulses 2+ throughout GI normal to inspection, nondistended, normoactive bowel sounds Inspection: gravid no CVA tenderness and appearance of the vagina normal External Female Exam: normal appearance of the urethra; Negative for external lesion OB / External & Speculum: external exam normal Manual OB Exam: estimated gestational size appropriate, presentation cephalic, dilated 7, effaced 90 and station -1 Uterus Palpation: Negative for uterus tender Extremity normal to inspection Skin no rashes or lesions noted Neuro deep tendon reflexes 2+ bilaterally and gait normal Motor Exam: strength 5/5 throughout and clonus absent Psych Activity / Motor Behavior: appropriate eye contact Speech: normal speech Labs Labs Labs: Blood Type A NEGATIVE Antibody Screen NEGATIVE Hct 36.0 % (37-47) L Hgb 12.2 g/dL (12.0-15.0) Pap Smear Negative Obstetrics Ultrasound Syphilis Total Ab Non-reactive Rubella IgG Antibody Reactive (Nonreactive) Hep Bs Antigen Non-Reactive (Nonreactive) Hepatitis C Antibody Non-Reactive (Nonreactive) Chlamydia DNA (EKTA) Negative (Negative) N.gonorrhoeae DNA (EKTA) Negative (Negative) HIV 1&2 Antibody Non-Reactive (Nonreactive) Glucose 1 Hr 50 gm 134 mg/dL (70-140) Rhogam given: Yes Miscellaneous Test Assessment & Plan (1) Thrombocytopenia affecting : COMMENT: rpt plts q 4 weeks (next due end of December) PLAN: spontaneously resolved to 160k at repeat. (2) AMA (advanced maternal age) multigravida 35+: COMMENT: declined genetic screening, recommend 36 week growth scan, delivery by 39 weeks (3) Hx successful (vaginal after ), currently : COMMENT: x2, desires another . primary c/s breech (4) Rh negative state in antepartum period: COMMENT: Rhogam @ 28 weeks & PRN bleeding (5) Supervision of high-risk : QUALIFIERS: Trimester: second trimester Qualified Code(s): O09.92 - Supervision of high risk , unspecified, second trimester COMMENT: PRR,, RICKY 02/29/24, surprise PC Indra, Jonnathan, Mohamud Warner (6) : QUALIFIERS: Weeks of gestation: 40 weeks Qualified Code(s): Z3A.40 - 40 weeks gestation of COMMENT: GBS neg, nl anatomy, declined genetic & carrier testing PLAN: Plan Patient presents IAL, plan expectant management for , pitocin/AROM PRN if needed. Pain management: plans unmedicated. GBS neg. Management of any complications: none I have reviewed the [facility] and made any clinically relevant updates. Dr. Klein updated on admission, exam and poc. co-management for TOLAC.
[2024-03-04] MEDS: Lactated Ringers 1,000 ML 50 ML IV (18:00)
[2024-03-04 18:24] LABS: Absolute Lymphocyte Count 1.06 X10^3/uL (0.83-4.51); Absolute Neutrophil Count 8.7 X10^3/uL (2.0-7.7); Basophil# 0.05 X10^3/uL; Basophil% 0.5 % (0-1); Eosinophil# 0.16 X10^3/uL; Eosinophils% 1.5 % (0-5); Hematocrit 38.5 % (37-47); Hemoglobin 13.4 g/dL (12.0-15.0); Lymphocyte # 1.06 X10^3/ul (0.83-4.51); Lymphocyte % 9.9 % (19-41); Mean Corp Hgb Conc 34.8 g/dL (32-36); Mean Corpuscular Hgb 31.4 pg (27.0-32.0); Mean Corpuscular Volume 90.2 fL (81-99); Mean Platelet Vol. 11.7 fl (6.2-12.0); Monocyte# 0.62 X10^3/uL; Monocyte% 5.8 % (0-10); NRBC Flagged by Analyzer 0 % (0-5); Neutrophil # 8.66 X10^3/uL (2.7-7.7); Platelet Count 138 K/mm3 (150-450); RBC Distribution Width CV 13.3 % (11.6-14.6); RBC Distribution Width SD 43.6 fl (35.1-43.9); Red Blood Count 4.27 M/mm3 (4.2-5.4); White Blood Count 10.7 K/mm3 (4.4-11.0)
[2024-03-04] MEDS: Oxytocin 15 Units/NS 250ml 15 UNITS/250 ML IV.SOLN 334 UNITS IV (19:00)
[2024-03-04 19:09] LABS: Syphilis Antibodies Non-reactive
[2024-03-04] MEDS: Oxytocin 15 Units/NS 250ml 15 UNITS/250 ML IV.SOLN 83 UNITS IV (19:30)
--- NOTE | 2024-03-04 20:07 | EX.PCM.OBVAG ---
Assessment & Plan (1) , delivered: COMMENT: CATHY 40.4 girl! Maternal Data Information RICKY Calculator Estimated Delivery Date Method Current WG Current Estimate 02/29/24 LMP (Certain) 40w 4d Final RICKY: 02/29/24 Final RICKY Source: LMP Gestational age: 40.4 Vaginal Delivery Maternal Presentation Maternal Presentation: Active Labor Maternal Presentation: at 40.4 with contractions since 0130. 7//-1 on admission. TOLAC Vaginal Delivery Information Procedure Performed: Spontaneous Vaginal Delivery Surgeon/Practitioner: Jen Castillo Date of Procedure: 03/04/24 Pre-Procedure Diagnosis: see problem list Post-Procedure Diagnosis: Type of anesthesia: None Estimated Blood Loss: 200 Time of Delivery: 18:37 Findings Description of procedure: Patient began pushing and delivered the head in the RICK presentation. The head was delivered atraumatically and hand presented under neck, arm supported and delivered through. The anterior and posterior shoulders delivered without complication followed by the rest of the and the was placed on the maternal abdomen. Delayed cord clamping was employed for approximately 60 seconds. Cord was clamped and cut and gentle traction was applied to the cord and the placenta delivered spontaneously immediately following it was noted to be intact with three-vessel cord. The perineum and vagina were inspected and noted to have second degree laceration repaired with 3-0 after lid. EBL was 200cc. Patient and tolerated delivery well. Presentation: Vertex Amniotic Membrane Rupture Type: Artificial Amniotic Fluid Description: Clear Placental Delivery Description: Spontaneous Placenta Disposition: [facility] Cord Vessel Description: 3 Vessels Cord Entanglement: None Infant A Gender: Female (1 minute): 8 (5 minute): 8 Delayed Cord Clamping: Yes Post Vaginal Deli Medications given after delivery: IV Pitocin Episiotomy Description: None Laceration: 2nd degree Complication Complications: No Procedures Urinary/Genital 52xxx-59xxx: 12420 delivery [facility]
--- NOTE | 2024-03-04 20:12 | DCINST_ITS ---
Discharge Instructions Diet Discharge Diet: No restrictions DC O2, CPAP, BIPAP needs Home O2 Discharge instructions: No Dressing / Incision Discharge Activity: May Not Drive and May Shower May resume sexual activity in: 6 weeks Weight Bearing Status: Full weight bearing Dressing / Incision Call your doctor if your incision/area has: Sudden Increased Bleeding, Increased Pain/ Swelling and Foul Smelling Discharge Call your doctor if you observe: Fever of 101 or Higher, Numbness or Tingling, Change in Color, Inability to urinate, Inability to have a bowel movement, Using more than 1 pad per hour, Shortness of breath, Dizziness, Fainting spells, Chest pain, Calf discomfort and Uncontrolled pain Follow Up Care Please Follow Up With: Jen Castillo CNM When: 6 weeks , please call office to make an appointment. Congratulations on the of your baby! Test Results: Test results from this visit will be discussed in further detail at your follow- up appointment, if applicable. Discharge Plan Admission Admit Date/Time: 03/04/24 17:58 Attending Provider: Jen Castillo Primary Care Provider: Vicky Squires Primary Discharge Orders/Prescriptions Prescriptions: No Action PNV no.[id number] 400 mcg-35 mg- 25 mg-5 mg tablet,chewable PO acetaminophen 325 mg tablet 650 mg PO Q4-6H PRN Referrals / Follow Up: [facility] [Primary Care Provider] -
[2024-03-04] MEDS: Naproxen 500 MG Tablet PO (20:39)
[2024-03-05] VITALS (11 sets, daily range): BP systolic 108–133; BP diastolic 58–71; PULSE 70–88; RESP 16; TEMP 36.5–37.2; O2SAT 97–99
[2024-03-05] MEDS: Rho(D) Immune Globulin 300 MCG (1500 Unit) Syringe IV (00:21)
[2024-03-05] MEDS: Naproxen 500 MG Tablet PO (06:47)
--- NOTE | 2024-03-05 07:13 | PCM.PN.CNM ---
Subjective Subjective Patient doing well without complaints. Tolerating PO. Ambulating and voiding without difficulty. Feeding well. Denies chest pain, shortness of breath, calf pain/swelling, fevers, chills, lightheadedness. Objective Data Objective Data Vital Signs: Vital Signs Temp Pulse Resp BP Pulse Ox O2 Del Method 97.7 F L 76 16 133/68 H 97 Room Air 03/05/24 04:00 03/05/24 04:32 03/05/24 04:00 03/05/24 04:32 03/05/24 04:00 03/05/24 04:00 Oxygen Delivery Method Room Air Weight: 167 lb Body Mass Index (BMI) 27.8 Intake & Output: Intake and Output for Last 24 Hours 03/03/24 03/04/24 03/05/24 23:59 23:59 23:59 Intake Total 609.17 / 609.17 Output Total 200 / 200 450 / 450 Balance 409.17 / 409.17 -450 / -450 Lab / Micro Data 03/04/24 18:05 Labs: Laboratory Results - last 24 hr 03/04/24 18:05: WBC 10.7, RBC 4.27, Hgb 13.4, Hct 38.5, MCV 90.2, MCH 31.4, MCHC 34.8, RDW Std Deviation 43.6, RDW Coeff of Aman 13.3, Plt Count 138 L, MPV 11.7, Immature Gran % (Auto) 1.300 H, Neut % (Auto) 81.0 H, Lymph % (Auto) 9.9 L, [place] % (Auto) 5.8, Eos % (Auto) 1.5, Baso % (Auto) 0.5, Absolute Neuts (auto) 8.7 H, Absolute Lymphs (auto) 1.06, Nucleated RBC % 0, Syphilis Total Ab Non-reactive, Blood Type A NEGATIVE, Antibody Screen NEGATIVE 03/04/24 22:15: Screen NEGATIVE, Baby's Blood Type O POSITIVE, Baby's CHIP NEGATIVE Physical Exam Const alert and oriented x3 Neck full ROM Lymph Lymphatic: no lymphadenopathy noted Chest inspection of chest normal and inspection of breasts normal Resp normal respiratory effort, normal air movement and no use of accessory muscles Cardio regular rate and regular rhythm GI normal to inspection, nondistended, normoactive bowel sounds Uterus Palpation: uterus fundus firm Extremity normal to inspection, full ROM and no pedal edema Skin no rashes or lesions noted Psych mental status grossly normal Assessment & Plan (1) , delivered: COMMENT: LC 40.4 girl! (2) Hx successful (vaginal after ), currently : COMMENT: x2, desires another . primary c/s breech (3) Rh negative state in antepartum period: COMMENT: Rhogam @ 28 weeks & PRN bleeding PLAN: Plan s/p PPD # 1 1. routine post delivery care 2. breast feeding- support given 3. rh positive 4. rubella immune 5. desires d/c home today after is cleared for d/c
== END 2024-03-05 19:35 | disposition home or self-care (01) | DRG 807 ==
LOC: WP 18:07
PROVIDERS: Admitting Provider Registered Nurse; Referring Provider Registered Nurse; Visit Provider Registered Nurse
DX: O48.0 Post-term pregnancy (principal); Z37.0 Single live birth; O34.219 Maternal care for unspecified type scar from previous cesarean delivery; O70.1 Second degree perineal laceration during delivery; Z3A.40 40 weeks gestation of pregnancy; Z87.891 Personal history of nicotine dependence
CPT/HCPCS: 59025; 59050; 85025; 85461; 86780; 86850; 86900; 86901; 90384; 99221; G0378; J2790; J2791

== ENCOUNTER → 2024-04-15 | Outpatient (CLI) | payer BC, SELFPAY ==
[2024-04-20 16:09] LABS: HPV APTIMA, High Risk Negative (Negative)
== END | disposition home or self-care (01) ==
LOC: LABSPEC 15:43
PROVIDERS: Referring Provider Advanced Practice Midwife; Visit Provider Advanced Practice Midwife
DX: Z12.4 Encounter for screening for malignant neoplasm of cervix (principal)
CPT/HCPCS: 87624; 88175; G0145